=== PATIENT | male | born 1950 | race Caucasian/White ===

== ENCOUNTER 2023-04-11 12:54 | Day surgery (SDC) | payer OTHER ==
[~2023-04-11] VITALS: Ht 175.3 cm; Wt 75.0 kg
[~2023-04-11 12:54] MED LIST: ACET-3385 PO; ACETYLCHOLINE CHLORIDE 1 EA INTRAOCULAR SOLUTION KIT IO ONE; ALBU18HF12 IH; AMLO2.5T96 PO; ATOR40TA28 PO; BALANCED SALT 15 ML OPHTHALMIC IRRIG.SOLN ONE; CHOL500043 PO; CYAN500T56 PO; EPINEPHrine 1:1,000 [1 MG/ML] VIAL ONE; FLUT1BLS3 IH; LIDOCAINE/PF 1% 2 ML VIAL ONE; MELA5TAB40 PO; OS500 PO; RINGERS SOLUTION,LACTATED 500 ML IV ONE; TETRACAINE HCL/PF 0.5% 4 ML OPHTHALMIC SOLUTION ONE
[2023-04-11] MEDS ORDERED: FentaNYL CITRATE PF 100 MCG/2 ML VIAL IVP ONE (12:55)
[2023-04-11] MEDS ORDERED: MIDAZOLAM HCL 2 MG/2 ML VIAL IVP ONE (12:55)
[2023-04-11] MEDS ORDERED: RINGERS SOLUTION,LACTATED 500 ML IV ONE (13:00)
[2023-04-11] MEDS ORDERED: SODIUM CHLORIDE 0.9% 500 ML IV ONE ×2 (13:00→13:07)
[2023-04-11] MEDS ORDERED: MOXIFLOXACIN HCL 0.5% 3 ML OPHTHALMIC SOLUTION ONE (13:06)
[2023-04-11] MEDS ORDERED: TETRACAINE HCL/PF 0.5% 4 ML OPHTHALMIC SOLUTION ONE (13:06)
[2023-04-11] MEDS ORDERED: TROPICAMIDE 1% 2 ML OPHTHALMIC SOLUTION ONE (13:06)
[2023-04-11] MEDS ORDERED: CYCLOPENTOLATE HCL 1% 2 ML OPHTHALMIC SOLUTION ONE (13:06)
[2023-04-11] MEDS ORDERED: FLURBIPROFEN SODIUM 0.03% 2.5 ML OPHTHALMIC SOLUTION ONE (13:06)
[2023-04-11] MEDS ORDERED: PHENYLEPHRINE HCL 2.5% 2 ML OPHTHALMIC SOLUTION ONE (13:06)
[2023-04-11] MEDS: TETRACAINE HCL/PF 0.5% 4 ML OPHTHALMIC SOLUTION OS SCH ×2 (13:41→13:48)
[2023-04-11] MEDS: PHENYLEPHRINE HCL 2.5% 2 ML OPHTHALMIC SOLUTION OS SCH ×2 (13:41→13:49)
[2023-04-11] MEDS: TROPICAMIDE 1% 2 ML OPHTHALMIC SOLUTION OS SCH ×2 (13:41→13:48)
[2023-04-11] MEDS: FLURBIPROFEN SODIUM 0.03% 2.5 ML OPHTHALMIC SOLUTION OS SCH ×2 (13:42→13:49)
[2023-04-11] MEDS: CYCLOPENTOLATE HCL 1% 2 ML OPHTHALMIC SOLUTION OS SCH ×2 (13:42→13:49)
[2023-04-11] MEDS: MOXIFLOXACIN HCL 0.5% 3 ML OPHTHALMIC SOLUTION OS SCH ×2 (13:42→13:49)
[2023-04-11] MEDS ORDERED: ACETAMINOPHEN 325 MG TABLET PO PRN (14:00)
[2023-04-11 14:11] LABS: GLUCOMETER DEV NAME(LOC) SDS.
== END 2023-04-11 17:30 | disposition home or self-care (01) ==
LOC: SURGERY 12:54
PROVIDERS: ATTEND Ophthalmology
DX: H25.12 Age-related nuclear cataract, left eye (principal); I10 Essential (primary) hypertension; I25.10 Atherosclerotic heart disease of native coronary artery without angina pectoris; J43.9 Emphysema, unspecified; Z79.899 Other long term (current) drug therapy; Z87.891 Personal history of nicotine dependence; Z98.890 Other specified postprocedural states; E78.00 Pure hypercholesterolemia, unspecified; G47.00 Insomnia, unspecified; N18.30 Chronic kidney disease, stage 3 unspecified; M17.10 Unilateral primary osteoarthritis, unspecified knee; M16.0 Bilateral primary osteoarthritis of hip; Z85.820 Personal history of malignant melanoma of skin
CPT/HCPCS: 66984; 82962; 93005; J0171; J3010; J3490; J2250; J7120; J7040; V2632

== ENCOUNTER 2023-06-13 12:19 | Day surgery (SDC) | payer OTHER, MEDICAID ==
[~2023-06-13] VITALS: Ht 175.3 cm; Wt 68.2 kg
[~2023-06-13 12:19] MED LIST changes: +0.9% SODIUM CHLORIDE 10 ML VIAL IV ONE; -ACETYLCHOLINE CHLORIDE 1 EA INTRAOCULAR SOLUTION KIT IO ONE; +ASPI-1450 PO; +CYCLOPENTOLATE HCL 1% 2 ML OPHTHALMIC SOLUTION ONE; +DEXAMETHASONE SOD PHOS 4 MG/ML VIAL IVP ONE; +EPHEDrine SULFATE 50 MG/ML VIAL IM ONE; +FLURBIPROFEN SODIUM 0.03% 2.5 ML OPHTHALMIC SOLUTION ONE; +FentaNYL CITRATE PF 100 MCG/2 ML VIAL IVP ONE; +HYALURONATE SOD 8.5MG/0.85ML 10 MG/ML SYRINGE IO ONE; +ISOS30TA92 PO; +MIDAZOLAM HCL 2 MG/2 ML VIAL IVP ONE; +MOXIFLOXACIN HCL 0.5% 3 ML OPHTHALMIC SOLUTION ONE; +ONDANSETRON HCL 4 MG/2 ML VIAL IVP ONE; +PHENYLEPHRINE HCL 2.5% 2 ML OPHTHALMIC SOLUTION ONE; +POVIDONE-IODINE 5% 30 ML OPHTHALMIC SOLUTION ONE; +PROPOFOL 1% 20 ML VIAL IVP ONE; +PrednisoLONE ACETATE 1% 5 ML OPHTHALMIC SUSPENSION ONE; +SODI1POW39 PO; +TROPICAMIDE 1% 2 ML OPHTHALMIC SOLUTION ONE
[2023-06-13] MEDS: CYCLOPENTOLATE HCL 1% 2 ML OPHTHALMIC SOLUTION OD SCH ×3 (13:02→13:17)
[2023-06-13] MEDS: TROPICAMIDE 1% 2 ML OPHTHALMIC SOLUTION OD SCH ×3 (13:03→13:17)
[2023-06-13] MEDS: FLURBIPROFEN SODIUM 0.03% 2.5 ML OPHTHALMIC SOLUTION OD SCH ×3 (13:03→13:16)
[2023-06-13] MEDS: PHENYLEPHRINE HCL 2.5% 2 ML OPHTHALMIC SOLUTION OD SCH ×3 (13:03→13:16)
[2023-06-13] MEDS: MOXIFLOXACIN HCL 0.5% 3 ML OPHTHALMIC SOLUTION OD SCH ×3 (13:03→13:16)
[2023-06-13] MEDS: TETRACAINE HCL/PF 0.5% 4 ML OPHTHALMIC SOLUTION OD SCH ×3 (13:03→13:16)
[2023-06-13] MEDS ORDERED: ACETAMINOPHEN 325 MG TABLET PO PRN (14:15)
[2023-06-13] MEDS ORDERED: POVIDONE-IODINE 5% 30 ML OPHTHALMIC SOLUTION ONE (14:31)
[2023-06-13] MEDS ORDERED: RINGERS SOLUTION,LACTATED 1,000 ML IV ONE (14:40)
[2023-06-13] MEDS ORDERED: RINGERS SOLUTION,LACTATED 500 ML IV ONE (15:15)
== END 2023-06-13 16:50 | disposition home or self-care (01) ==
LOC: SURGERY 12:19
PROVIDERS: ATTEND Ophthalmology
DX: E11.36 Type 2 diabetes mellitus with diabetic cataract (principal); H25.11 Age-related nuclear cataract, right eye; I10 Essential (primary) hypertension; J44.9 Chronic obstructive pulmonary disease, unspecified; Z79.899 Other long term (current) drug therapy; Z98.890 Other specified postprocedural states; F17.210 Nicotine dependence, cigarettes, uncomplicated
CPT/HCPCS: 66982; J2704; J1100; J3490 ×2; J0171; J3010; J2250; J2405; Q9967; J7120 ×2; V2632